=== PATIENT | male | born 1955 | race Caucasian/White ===

== ENCOUNTER 2023-05-16 18:12 | Inpatient (IN) | payer OTHER, MEDICAID ==
[~2023-05-16] VITALS: Ht 177.8 cm; Wt 108.9 kg
[2023-05-16 18:15] VITALS: BP 164/90; PULSE 94; RESP 20; TEMP 98.4; O2SAT 95
[2023-05-16 19:08] VITALS: PULSE 107; RESP 25; O2SAT 93
[2023-05-16] MEDS: ALBUTEROL SULFATE/IPRATROPIU 3 ML SOL IH ONE ×2 (19:08→20:37)
[2023-05-16 19:11] VITALS: PULSE 107; RESP 28; O2SAT 95
[2023-05-16 19:33] VITALS: O2SAT 95
[2023-05-16] MEDS ORDERED: PIPERACILLIN/TAZOBACTAM 3.375 GM VIAL IV ONE (19:50)
[2023-05-16] MEDS: methylPREDNISolone SS 125 MG/2 ML VIAL IVP ONE (20:21)
[2023-05-16] MEDS: PIPERACILLIN/TAZOBACTAM 3.375 GM in DEXT 5% MINI-BAG PLUS 50 ML IV ONE (20:24)
[2023-05-16 20:37] VITALS: PULSE 94; RESP 20; O2SAT 99
[2023-05-16 20:38] LABS: INR 1.06 (0.8-1.2); PARTIAL THROMBOPLASTIN TIME 35.4 secs (22-35.6); PROTHROMBIN TIME 11.1 secs (10.8-13.4)
[2023-05-16 20:40] LABS: ANION GAP 12.2 (8-16); CALCIUM 9.9 mg/dL (8.5-10.1); CARBON DIOXIDE 27.9 mmol/L (21-32); CREATININE 0.6 mg/dL (0.6-1.3); POTASSIUM 4.1 mmol/L (3.5-5.1)
[2023-05-16 20:47] VITALS: O2SAT 95
[2023-05-16 20:48] LABS: ALANINE AMINOTRANSFERASE 14 U/L (12-78); ALBUMIN 3.3 g/dL (3.4-5.0); ALKALINE PHOSPHATASE 67 U/L (50-136); ASPARTATE AMINOTRANSFERASE 16 U/L (15-37); BILIRUBIN,DIRECT 0.3 mg/dL (0.0-0.3); TOTAL BILIRUBIN 1.1 mg/dL (0.0-1.0)
[2023-05-16 20:50] LABS: LACTIC ACID 1.3 mmol/L (0.4-2.0)
[2023-05-16] MEDS: LORazepam 2 MG/ML VIAL IVP ONE (20:53)
[2023-05-16 21:59] LABS: BASOPHILS # (AUTO) 0.1 K/uL (0.00-0.22); BASOPHILS % (AUTO) 0.6 % (0.0-2.0); EOSINOPHILS # (AUTO) 0.2 K/uL (0-0.4); EOSINOPHILS % (AUTO) 1.8 % (0.0-4.0); HEMATOCRIT 39.5 % (36-52); HEMOGLOBIN 13.5 g/dL (12.0-18.0); MEAN CORPUSCULAR HEMOGLOBIN 30 pg (27-31); MEAN CORPUSCULAR HGB CONC 34 g/dL (33-37); MEAN CORPUSCULAR VOLUME 87.6 fL (80-94); MONOCYTES # (AUTO) 0.7 K/uL (0.8-1.0); MONOCYTES % (AUTO) 6.3 % (1.7-9.3); NEUTROPHILS # (AUTO) 8.9 K/uL (1.8-7.7); NEUTROPHILS % (AUTO) 82.3 % (42.2-75.2); PLATELET COUNT (AUTO) 289 K/uL (140-450); RED BLOOD CELL COUNT(AUTO) 4.52 MIL/uL (4.20-6.10); RED CELL DISTRIBUTION WIDTH 17.6 % (11.6-13.7); WHITE BLOOD COUNT (AUTO) 10.8 K/uL (4.8-10.8)
[2023-05-16 22:03] LABS: BLOOD GAS BASE EXCESS 0.1 mmol/L (-2.0-2.0); BLOOD GAS HCO3 23.9 mmol/L (22-26); BLOOD GAS O2 SAT% 93.8 % (92.0-98.5); BLOOD GAS PCO2 36.3 mmHg (35-45)
[2023-05-16] MEDS ORDERED: HYDROcodone/APAP 5/325 MG 1 TAB TAB PO PRN (22:20)
[2023-05-17] VITALS (23 sets, daily range): BP systolic 79–192; BP diastolic 41–133; PULSE 68–154; RESP 18–31; TEMP 98.8–98.9; O2SAT 66–100
[2023-05-17] MEDS ORDERED: PIPERACILLIN/TAZOBACTAM 3.375 GM VIAL IV ONE (05:06)
[2023-05-17] MEDS: PIPERACILLIN/TAZOBACTAM 3.375 GM in DEXTROSE 5% 50 ML IV SCH (05:30)
[2023-05-17] MEDS ORDERED: FAMO-90 GT (06:09)
[2023-05-17] MEDS ORDERED: GABA100C PO (06:09)
[2023-05-17] MEDS ORDERED: APIX5TAB GT (06:09)
[2023-05-17] MEDS ORDERED: ATOR40TA GT (06:09)
[2023-05-17] MEDS ORDERED: LISI40TA8 GT (06:09)
[2023-05-17] MEDS ORDERED: METO50TE2 PO (06:09)
[2023-05-17] MEDS ORDERED: DAPA10TA GT (06:09)
[2023-05-17 07:30] LABS: BASOPHILS % (AUTO) 0.1 % (0.0-2.0); HEMATOCRIT 41.6 % (36-52); LYMPHOCYTES # (AUTO) 1.5 K/uL (2.0-11.5); MEAN CORPUSCULAR HEMOGLOBIN 30 pg (27-31); MEAN CORPUSCULAR HGB CONC 34 g/dL (33-37); MEAN CORPUSCULAR VOLUME 88.6 fL (80-94); MONOCYTES # (AUTO) 0.3 K/uL (0.8-1.0); MONOCYTES % (AUTO) 1.9 % (1.7-9.3); NEUTROPHILS # (AUTO) 13.4 K/uL (1.8-7.7); PLATELET COUNT (AUTO) 399 K/uL (140-450); RED CELL DISTRIBUTION WIDTH 17.6 % (11.6-13.7); WHITE BLOOD COUNT (AUTO) 15.2 K/uL (4.8-10.8)
[2023-05-17] MEDS: KETAMINE HCL 50 mg/5 mL UD SYRINGE IV ONE ×2 (07:36→09:53)
[2023-05-17] MEDS: PROPOFOL 1000 MG/100 ML PREMIX 100 ML IV ONE (08:01)
[2023-05-17] MEDS: ACETYLCYSTEINE 20% (200 MG/ML) 200 MG/ML VIAL ONE (08:09)
[2023-05-17 08:16] LABS: ALBUMIN 3.6 g/dL (3.4-5.0); ANION GAP 13.5 (8-16); CALCIUM 10.5 mg/dL (8.5-10.1); CARBON DIOXIDE 29.1 mmol/L (21-32); CREATININE 0.8 mg/dL (0.6-1.3); MAGNESIUM 2.3 mg/dL (1.8-2.4); PHOSPHORUS 5.1 mg/dL (2.5-4.9); POTASSIUM 4.6 mmol/L (3.5-5.1); TOTAL BILIRUBIN 0.7 mg/dL (0.0-1.0); TOTAL PROTEIN, SERUM 8.7 g/dL (6.4-8.2)
[2023-05-17] MEDS ORDERED: VANCOMYCIN PER PHARMACY MC PRN ×2 (09:25→17:35)
[2023-05-17] MEDS: NOREPINEPHRINE 4 MG in DEXTROSE 5% 250 ML IV PRN (09:50)
[2023-05-17] MEDS: PROPOFOL 1000 MG/100 ML PREMIX 100 ML IV PRN (09:51)
[2023-05-17] MEDS: NACL 0.9% 1,000 ML IV SCH ×2 (09:57→09:58)
[2023-05-17] MEDS: AMIODARONE 150 MG in DEXTROSE 5% 100 ML IV SCH (10:01)
[2023-05-17] MEDS: AMIODARONE 450 MG in DEXTROSE 5% 250 ML IV SCH (10:18)
[2023-05-17] MEDS: VANCOMYCIN 1.25GM PREMIX 250 ML IV SCH (12:16)
[2023-05-17 13:15] LABS: BLOOD GAS BASE EXCESS -0.8 mmol/L (-2.0-2.0); BLOOD GAS HCO3 22.3 mmol/L (22-26); BLOOD GAS PCO2 32.2 mmHg (35-45); BLOOD GAS PH 7.458 (7.35-7.45); BLOOD GAS PO2 259.3 mmHg (75-100)
[2023-05-17 13:16] LABS: BLOOD GAS O2 SAT% 99.6 % (92.0-98.5)
[2023-05-17] MEDS ORDERED: DEXTROSE 50% 50 ML SYR IVP PRN (15:15)
[2023-05-17] MEDS: LEVALBUTEROL 1.25 MG/0.5 ML NEBU INH SCH (15:24)
[2023-05-17] MEDS: ENOXAPARIN 80 MG/0.8 ML SYR SUBQ SCH (16:25)
[2023-05-17] MEDS: BLOOD GLUCOSE MONITORING 1 DEV DEV FS SCH (16:34)
[2023-05-17] MEDS: INSULIN LISPRO SLIDING SCALE 100 UNITS/ML VIAL SUBQ PRN (16:36)
[2023-05-17] MEDS ORDERED: LOVENOX 1MG/KG Q12H SUBQ SCH (21:00)
[2023-05-17] MEDS: FAMOTIDINE 20 MG TAB GT SCH (21:37)
[2023-05-17] MEDS: ATORVASTATIN 20 MG TAB GT SCH (21:39)
[2023-05-18] VITALS (31 sets, daily range): BP systolic 92–156; BP diastolic 50–82; PULSE 68–133; RESP 18–29; TEMP 97.8–98.8; O2SAT 95–100
[2023-05-18 04:45] LABS: BASOPHILS # (AUTO) 0.1 K/uL (0.00-0.22); BASOPHILS % (AUTO) 0.7 % (0.0-2.0); EOSINOPHILS # (AUTO) 0.1 K/uL (0-0.4); EOSINOPHILS % (AUTO) 0.5 % (0.0-4.0); HEMATOCRIT 28.3 % (36-52); HEMOGLOBIN 9.9 g/dL (12.0-18.0); LYMPHOCYTES # (AUTO) 1.4 K/uL (2.0-11.5); LYMPHOCYTES % (AUTO) 12.2 % (20.5-51.1); MEAN CORPUSCULAR HEMOGLOBIN 31 pg (27-31); MEAN CORPUSCULAR HGB CONC 35 g/dL (33-37); MEAN CORPUSCULAR VOLUME 88.5 fL (80-94); MONOCYTES # (AUTO) 0.8 K/uL (0.8-1.0); NEUTROPHILS % (AUTO) 79.6 % (42.2-75.2); PLATELET COUNT (AUTO) 243 K/uL (140-450); RED CELL DISTRIBUTION WIDTH 18.1 % (11.6-13.7); WHITE BLOOD COUNT (AUTO) 11.3 K/uL (4.8-10.8)
[2023-05-18 05:37] LABS: ALBUMIN 2.5 g/dL (3.4-5.0); ANION GAP 7.6 (8-16); CALCIUM 8.5 mg/dL (8.5-10.1); CARBON DIOXIDE 27.4 mmol/L (21-32); CREATININE 0.9 mg/dL (0.6-1.3); MAGNESIUM 1.8 mg/dL (1.8-2.4); PHOSPHORUS 2.6 mg/dL (2.5-4.9); TOTAL BILIRUBIN 0.5 mg/dL (0.0-1.0); TOTAL PROTEIN, SERUM 5.9 g/dL (6.4-8.2)
[2023-05-18] MEDS: AMIODARONE 200 MG TAB PO SCH (09:17)
[2023-05-18] MEDS: VANCOMYCIN 1.25GM PREMIX 250 ML IV SCH (10:10)
[2023-05-18] MEDS: ACETYLCYSTEINE 20% (200 MG/ML) 200 MG/ML VIAL INH SCH (14:20)
[2023-05-18] MEDS: MORPHINE SULFATE 2 MG/ML SYR IVP PRN (15:46)
[2023-05-19] VITALS (31 sets, daily range): BP systolic 100–248; BP diastolic 56–113; PULSE 76–154; RESP 21–41; TEMP 98.2–102.4; O2SAT 92–100
[2023-05-19] MEDS: LORazepam 2 MG/ML VIAL IVP PRN (00:36)
[2023-05-19] MEDS: MIDAZOLAM MDV 50 MG/10 ML VIAL IV ONE (01:56)
[2023-05-19] MEDS: ACETAMINOPHEN 325 MG TAB PO PRN (04:14)
[2023-05-19 05:34] LABS: BASOPHILS % (AUTO) 0.1 % (0.0-2.0); EOSINOPHILS # (AUTO) 0.1 K/uL (0-0.4); EOSINOPHILS % (AUTO) 0.8 % (0.0-4.0); HEMATOCRIT 31.4 % (36-52); HEMOGLOBIN 11.3 g/dL (12.0-18.0); LYMPHOCYTES # (AUTO) 0.2 K/uL (2.0-11.5); LYMPHOCYTES % (AUTO) 1.6 % (20.5-51.1); MEAN CORPUSCULAR HEMOGLOBIN 32 pg (27-31); MEAN CORPUSCULAR HGB CONC 36 g/dL (33-37); MEAN CORPUSCULAR VOLUME 87.8 fL (80-94); MONOCYTES # (AUTO) 0.6 K/uL (0.8-1.0); MONOCYTES % (AUTO) 5.8 % (1.7-9.3); NEUTROPHILS # (AUTO) 9.9 K/uL (1.8-7.7); NEUTROPHILS % (AUTO) 91.7 % (42.2-75.2); PLATELET COUNT (AUTO) 240 K/uL (140-450); RED BLOOD CELL COUNT(AUTO) 3.57 MIL/uL (4.20-6.10); RED CELL DISTRIBUTION WIDTH 17.4 % (11.6-13.7); WHITE BLOOD COUNT (AUTO) 10.8 K/uL (4.8-10.8)
[2023-05-19 06:04] LABS: ALBUMIN 2.7 g/dL (3.4-5.0); CARBON DIOXIDE 24.1 mmol/L (21-32); CREATININE 0.9 mg/dL (0.6-1.3); MAGNESIUM 1.7 mg/dL (1.8-2.4); PHOSPHORUS 2.2 mg/dL (2.5-4.9); POTASSIUM 3.1 mmol/L (3.5-5.1); TOTAL BILIRUBIN 0.7 mg/dL (0.0-1.0); TOTAL PROTEIN, SERUM 6.6 g/dL (6.4-8.2)
[2023-05-19] MEDS: POTASSIUM CHLORIDE 20% 40 MEQ/15 ML UDC GT SCH (08:42)
[2023-05-19] MEDS: MIDAZOLAM MDV 50 MG in NACL 0.9% 40 ML IV PRN (12:40)
[2023-05-19] MEDS: fentaNYL citrate 1 MG in NACL 0.9% 80 ML IV PRN (18:30)
[2023-05-20] VITALS (32 sets, daily range): BP systolic 96–145; BP diastolic 48–69; PULSE 65–101; RESP 18–24; TEMP 97.2–99.2; O2SAT 96–100
[2023-05-20 06:59] LABS: ALBUMIN 2.1 g/dL (3.4-5.0); CARBON DIOXIDE 24.1 mmol/L (21-32); CREATININE 0.7 mg/dL (0.6-1.3); MAGNESIUM 1.6 mg/dL (1.8-2.4); PHOSPHORUS 2.7 mg/dL (2.5-4.9); POTASSIUM 3.1 mmol/L (3.5-5.1); TOTAL BILIRUBIN 0.7 mg/dL (0.0-1.0); TOTAL PROTEIN, SERUM 5.6 g/dL (6.4-8.2)
[2023-05-20 07:28] LABS: HEMATOCRIT 27.8 % (36-52); HEMOGLOBIN 9.7 g/dL (12.0-18.0); MEAN CORPUSCULAR HEMOGLOBIN 31 pg (27-31); MEAN CORPUSCULAR HGB CONC 35 g/dL (33-37); MEAN CORPUSCULAR VOLUME 87.7 fL (80-94); PLATELET COUNT (AUTO) 183 K/uL (140-450); RED BLOOD CELL COUNT(AUTO) 3.17 MIL/uL (4.20-6.10); RED CELL DISTRIBUTION WIDTH 17.3 % (11.6-13.7); WHITE BLOOD COUNT (AUTO) 6.2 K/uL (4.8-10.8)
[2023-05-20 07:58] LABS: BASOPHILS % (MANUAL) 0 % (0-2); BLASTS, MANUAL % 0 % (0-0); EOSINOPHILS % (MANUAL) 0 % (0-4); LYMPHOCYTES % (MANUAL) 6 % (20-46); METAMYELOCYTES % 0 % (0-0); MONOCYTES % (MANUAL) 2 % (5-12); MYELOCYTES % 0 % (0-0); OTHER CELLS,MANUAL % 0 (0-0); PLATELET ESTIMATE ADEQUATE; PROMYELOCYTES % 0 % (0-0)
[2023-05-20] MEDS: MAG SULF 2000 MG/WATER PREMIX 50 ML IV PRN (09:09)
[2023-05-20] MEDS: POTASSIUM CHLORIDE 10 MEQ TABER PO PRN (09:12)
[2023-05-21] VITALS (36 sets, daily range): BP systolic 97–215; BP diastolic 63–96; PULSE 65–108; RESP 18–28; TEMP 98.1–103.5; O2SAT 94–100
[2023-05-21 05:38] LABS: BASOPHILS % (AUTO) 0.3 % (0.0-2.0); EOSINOPHILS # (AUTO) 0.1 K/uL (0-0.4); EOSINOPHILS % (AUTO) 1.4 % (0.0-4.0); HEMATOCRIT 28.2 % (36-52); HEMOGLOBIN 9.9 g/dL (12.0-18.0); LYMPHOCYTES # (AUTO) 0.5 K/uL (2.0-11.5); LYMPHOCYTES % (AUTO) 8.1 % (20.5-51.1); MEAN CORPUSCULAR HEMOGLOBIN 30 pg (27-31); MEAN CORPUSCULAR HGB CONC 35 g/dL (33-37); MEAN CORPUSCULAR VOLUME 86.2 fL (80-94); MONOCYTES # (AUTO) 0.3 K/uL (0.8-1.0); NEUTROPHILS # (AUTO) 5.2 K/uL (1.8-7.7); NEUTROPHILS % (AUTO) 85.2 % (42.2-75.2); PLATELET COUNT (AUTO) 152 K/uL (140-450); RED BLOOD CELL COUNT(AUTO) 3.27 MIL/uL (4.20-6.10)
[2023-05-21 05:52] LABS: ANION GAP 10.2 (8-16); CARBON DIOXIDE 25.1 mmol/L (21-32); CREATININE 0.6 mg/dL (0.6-1.3); MAGNESIUM 1.8 mg/dL (1.8-2.4); POTASSIUM 3.3 mmol/L (3.5-5.1); TOTAL BILIRUBIN 0.7 mg/dL (0.0-1.0); TOTAL PROTEIN, SERUM 5.9 g/dL (6.4-8.2)
[2023-05-21] MEDS: VANCOMYCIN 1.25GM PREMIX 250 ML IV SCH (10:16)
[2023-05-21] MEDS ORDERED: ALBUTEROL SULFATE/IPRATROPIU 3 ML SOL IH PRN (11:55)
[2023-05-21] MEDS ORDERED: PIPERACILLIN/TAZOBACTAM 4.5 GM in DEXTROSE 5% 50 ML IV SCH (12:00)
[2023-05-21] MEDS: PIPERACILLIN/TAZOBACTAM 4.5 GM in DEXTROSE 5% 100 ML IV SCH (12:03)
[2023-05-21] MEDS: ALBUTEROL SULFATE/IPRATROPIU 3 ML SOL IH SCH (13:31)
[2023-05-21] MEDS: hydrALAZINE 20 MG/ML VIAL IVP PRN (14:05)
[2023-05-21 18:19] LABS: BILIRUBIN,URINE NEGATIVE (NEGATIVE); BLOOD, URINE 2+ (NEGATIVE); COLOR,URINE YELLOW (YELLOW); LEUKOCYTE ESTERASE ,URINE TRACE (NEGATIVE); NITRITE, URINE NEGATIVE (NEGATIVE); PROTEIN,URINE 2+ (NEGATIVE); UGLUCOSE 3+ (NEGATIVE); UROBILINOGEN,URINE 0.2 EU/dL (0.2 - 1)
[2023-05-21 18:20] LABS: APPEARANCE,URINE SLIGHTLY CLOUDY (CLEAR)
[2023-05-21 18:22] LABS: BACTERIA,URINE 2+ /HPF (None Seen); MUCUS,URINE 1+ /LPF (None Seen); SQUAMOUS EPITHELIAL CELL,UR 4-10 (MOD) /LPF (0-3 (FEW)); WBC,URINE 0-5 /HPF (0-5)
[2023-05-21 18:23] LABS: YEAST,URINE Moderate /HPF (None Seen)
[2023-05-21] MEDS: FLUCONAZOLE 200 MG/NS PREMIX 100 ML IV SCH (18:59)
[2023-05-22] VITALS (38 sets, daily range): BP systolic 111–218; BP diastolic 55–99; PULSE 73–100; RESP 20–30; TEMP 99.1–100.5; O2SAT 95–100
[2023-05-22 05:33] LABS: ALBUMIN 1.9 g/dL (3.4-5.0); ANION GAP 10.5 (8-16); CALCIUM 7.8 mg/dL (8.5-10.1); CARBON DIOXIDE 24.5 mmol/L (21-32); CREATININE 0.6 mg/dL (0.6-1.3); MAGNESIUM 1.7 mg/dL (1.8-2.4); PHOSPHORUS 1.7 mg/dL (2.5-4.9); TOTAL PROTEIN, SERUM 5.6 g/dL (6.4-8.2)
[2023-05-22 05:34] LABS: BASOPHILS % (AUTO) 0.3 % (0.0-2.0); EOSINOPHILS % (AUTO) 0.4 % (0.0-4.0); HEMATOCRIT 26.3 % (36-52); HEMOGLOBIN 9.1 g/dL (12.0-18.0); LYMPHOCYTES # (AUTO) 0.6 K/uL (2.0-11.5); LYMPHOCYTES % (AUTO) 10.6 % (20.5-51.1); MEAN CORPUSCULAR HEMOGLOBIN 30 pg (27-31); MEAN CORPUSCULAR HGB CONC 35 g/dL (33-37); MEAN CORPUSCULAR VOLUME 86.3 fL (80-94); MONOCYTES # (AUTO) 0.5 K/uL (0.8-1.0); MONOCYTES % (AUTO) 7.9 % (1.7-9.3); NEUTROPHILS # (AUTO) 4.8 K/uL (1.8-7.7); NEUTROPHILS % (AUTO) 80.8 % (42.2-75.2); PLATELET COUNT (AUTO) 138 K/uL (140-450); RED BLOOD CELL COUNT(AUTO) 3.05 MIL/uL (4.20-6.10); RED CELL DISTRIBUTION WIDTH 17.2 % (11.6-13.7); WHITE BLOOD COUNT (AUTO) 5.9 K/uL (4.8-10.8)
[2023-05-22 09:42] LABS: BLOOD GAS BASE EXCESS -0.5 mmol/L (-2.0-2.0); BLOOD GAS HCO3 22.7 mmol/L (22-26); BLOOD GAS PCO2 31.8 mmHg (35-45); BLOOD GAS PH 7.471 (7.35-7.45); BLOOD GAS PO2 90.3 mmHg (75-100)
[2023-05-22 09:43] LABS: BLOOD GAS O2 SAT% 97.5 % (92.0-98.5)
[2023-05-22] MEDS: ENOXAPARIN 100 MG/ML SYR SUBQ SCH (20:41)
[2023-05-23] VITALS (36 sets, daily range): BP systolic 102–183; BP diastolic 53–87; PULSE 60–94; RESP 16–32; TEMP 98.7–100.1; O2SAT 84–100
[2023-05-23 06:07] LABS: ALBUMIN 1.8 g/dL (3.4-5.0); ANION GAP 10.1 (8-16); CALCIUM 7.9 mg/dL (8.5-10.1); CARBON DIOXIDE 24.7 mmol/L (21-32); CREATININE 0.5 mg/dL (0.6-1.3); MAGNESIUM 1.9 mg/dL (1.8-2.4); PHOSPHORUS 1.5 mg/dL (2.5-4.9); TOTAL BILIRUBIN 0.6 mg/dL (0.0-1.0); TOTAL PROTEIN, SERUM 5.3 g/dL (6.4-8.2)
[2023-05-23 06:27] LABS: POTASSIUM 2.8 mmol/L (3.5-5.1)
[2023-05-23] MEDS: DEXMEDETOMIDINE HCL 400 MCG in NACL 0.9% 96 ML IV PRN (11:12)
[2023-05-23 12:31] LABS: BASOPHILS % (AUTO) 0.4 % (0.0-2.0); EOSINOPHILS # (AUTO) 0.1 K/uL (0-0.4); EOSINOPHILS % (AUTO) 2.1 % (0.0-4.0); LYMPHOCYTES % (AUTO) 16.5 % (20.5-51.1); MEAN CORPUSCULAR HEMOGLOBIN 30 pg (27-31); MEAN CORPUSCULAR HGB CONC 35 g/dL (33-37); MONOCYTES # (AUTO) 0.6 K/uL (0.8-1.0); MONOCYTES % (AUTO) 9.3 % (1.7-9.3); NEUTROPHILS # (AUTO) 4.4 K/uL (1.8-7.7); NEUTROPHILS % (AUTO) 71.7 % (42.2-75.2); PLATELET COUNT (AUTO) 156 K/uL (140-450); RED BLOOD CELL COUNT(AUTO) 3.02 MIL/uL (4.20-6.10); RED CELL DISTRIBUTION WIDTH 17.9 % (11.6-13.7); WHITE BLOOD COUNT (AUTO) 6.1 K/uL (4.8-10.8)
[2023-05-24] VITALS (31 sets, daily range): BP systolic 101–177; BP diastolic 58–88; PULSE 60–88; RESP 16–31; TEMP 98.6–99.8; O2SAT 95–100
[2023-05-24 05:17] LABS: BASOPHILS % (AUTO) 0.4 % (0.0-2.0); EOSINOPHILS # (AUTO) 0.1 K/uL (0-0.4); EOSINOPHILS % (AUTO) 1.5 % (0.0-4.0); HEMATOCRIT 24.4 % (36-52); HEMOGLOBIN 8.3 g/dL (12.0-18.0); LYMPHOCYTES # (AUTO) 1.1 K/uL (2.0-11.5); LYMPHOCYTES % (AUTO) 17.1 % (20.5-51.1); MEAN CORPUSCULAR HEMOGLOBIN 29 pg (27-31); MEAN CORPUSCULAR HGB CONC 34 g/dL (33-37); MEAN CORPUSCULAR VOLUME 86.2 fL (80-94); MONOCYTES # (AUTO) 0.5 K/uL (0.8-1.0); NEUTROPHILS # (AUTO) 4.8 K/uL (1.8-7.7); PLATELET COUNT (AUTO) 174 K/uL (140-450); RED BLOOD CELL COUNT(AUTO) 2.83 MIL/uL (4.20-6.10); RED CELL DISTRIBUTION WIDTH 17.4 % (11.6-13.7); WHITE BLOOD COUNT (AUTO) 6.4 K/uL (4.8-10.8)
[2023-05-24 06:07] LABS: ALBUMIN 1.8 g/dL (3.4-5.0); ANION GAP 10.6 (8-16); CALCIUM 8.3 mg/dL (8.5-10.1); CARBON DIOXIDE 24.6 mmol/L (21-32); CREATININE 0.6 mg/dL (0.6-1.3); MAGNESIUM 1.8 mg/dL (1.8-2.4); PHOSPHORUS 1.4 mg/dL (2.5-4.9); POTASSIUM 3.2 mmol/L (3.5-5.1); TOTAL BILIRUBIN 0.5 mg/dL (0.0-1.0); TOTAL PROTEIN, SERUM 5.5 g/dL (6.4-8.2)
[2023-05-24] MEDS: POLYETHYLENE GLYCOL 17 GM/PKT PO PRN (10:52)
[2023-05-24] MEDS: POTASSIUM CHLORIDE 20% 40 MEQ/15 ML UDC GT PRN (10:56)
[2023-05-24] MEDS: POTASSIUM PHOSPHATE 30 MM in NACL 0.9% 500 ML IV SCH (12:38)
[2023-05-24] MEDS: NOREPINEPHRINE 4 MG/4 ML VIAL IV ONE (14:13)
[2023-05-24] MEDS: HYDROcodone/APAP 5/325 MG 1 TAB TAB PO PRN (23:53)
[2023-05-25] VITALS (33 sets, daily range): BP systolic 116–199; BP diastolic 66–103; PULSE 49–100; RESP 14–28; TEMP 97.8–99.2; O2SAT 92–100
[2023-05-25 05:11] LABS: BASOPHILS % (AUTO) 0.4 % (0.0-2.0); EOSINOPHILS # (AUTO) 0.1 K/uL (0-0.4); EOSINOPHILS % (AUTO) 1.8 % (0.0-4.0); HEMATOCRIT 23.6 % (36-52); HEMOGLOBIN 8.1 g/dL (12.0-18.0); LYMPHOCYTES # (AUTO) 1.4 K/uL (2.0-11.5); LYMPHOCYTES % (AUTO) 22.7 % (20.5-51.1); MEAN CORPUSCULAR HEMOGLOBIN 30 pg (27-31); MEAN CORPUSCULAR HGB CONC 35 g/dL (33-37); MEAN CORPUSCULAR VOLUME 86.4 fL (80-94); MONOCYTES # (AUTO) 0.4 K/uL (0.8-1.0); MONOCYTES % (AUTO) 6.4 % (1.7-9.3); NEUTROPHILS # (AUTO) 4.1 K/uL (1.8-7.7); NEUTROPHILS % (AUTO) 68.7 % (42.2-75.2); PLATELET COUNT (AUTO) 218 K/uL (140-450); RED BLOOD CELL COUNT(AUTO) 2.73 MIL/uL (4.20-6.10); RED CELL DISTRIBUTION WIDTH 17.6 % (11.6-13.7)
[2023-05-25 05:24] LABS: ALBUMIN 1.9 g/dL (3.4-5.0); ANION GAP 10.5 (8-16); CALCIUM 8.5 mg/dL (8.5-10.1); CARBON DIOXIDE 25.1 mmol/L (21-32); CREATININE 0.5 mg/dL (0.6-1.3); MAGNESIUM 1.8 mg/dL (1.8-2.4); PHOSPHORUS 2.5 mg/dL (2.5-4.9); POTASSIUM 3.6 mmol/L (3.5-5.1); TOTAL BILIRUBIN 0.5 mg/dL (0.0-1.0); TOTAL PROTEIN, SERUM 5.6 g/dL (6.4-8.2)
[2023-05-25 10:03] LABS: BLOOD GAS BASE EXCESS -2.5 mmol/L (-2.0-2.0); BLOOD GAS HCO3 20.6 mmol/L (22-26); BLOOD GAS PCO2 29.1 mmHg (35-45); BLOOD GAS PH 7.467 (7.35-7.45); BLOOD GAS PO2 94.8 mmHg (75-100)
[2023-05-25 10:04] LABS: BLOOD GAS O2 SAT% 97.4 % (92.0-98.5)
[2023-05-25] MEDS: ALBUTEROL 0.083% 2.5 MG/3 ML NEBU INH ONE (11:06)
[2023-05-25] MEDS: ACETYLCYSTEINE 10% (100 MG/ML) 100 MG/ML VIAL INH SCH (11:16)
[2023-05-25] MEDS: ALBUTEROL 0.083% 2.5 MG/3 ML NEBU INH SCH (11:16)
[2023-05-25] MEDS: FUROSEMIDE 20 MG/2 ML VIAL IVP SCH (11:37)
[2023-05-25] MEDS: SCOPOLAMINE 1.5 MG/72 HR PATCH TD SCH (14:13)
[2023-05-25] MEDS: PIPERACILLIN/TAZOBACTAM 4.5 GM in DEXTROSE 5% 100 ML IV SCH (17:46)
[2023-05-25] MEDS: MELATONIN 3 MG TAB PO PRN (21:05)
[2023-05-26] VITALS (31 sets, daily range): BP systolic 143–193; BP diastolic 76–104; PULSE 73–111; RESP 16–31; TEMP 97.8–99.8; O2SAT 86–99
[2023-05-26 04:57] LABS: BASOPHILS % (AUTO) 0.6 % (0.0-2.0); EOSINOPHILS # (AUTO) 0.1 K/uL (0-0.4); EOSINOPHILS % (AUTO) 1.6 % (0.0-4.0); HEMATOCRIT 26.9 % (36-52); HEMOGLOBIN 9.1 g/dL (12.0-18.0); LYMPHOCYTES # (AUTO) 1.1 K/uL (2.0-11.5); LYMPHOCYTES % (AUTO) 13.4 % (20.5-51.1); MEAN CORPUSCULAR HEMOGLOBIN 29 pg (27-31); MEAN CORPUSCULAR HGB CONC 34 g/dL (33-37); MEAN CORPUSCULAR VOLUME 86.7 fL (80-94); MONOCYTES # (AUTO) 0.5 K/uL (0.8-1.0); MONOCYTES % (AUTO) 5.8 % (1.7-9.3); NEUTROPHILS # (AUTO) 6.5 K/uL (1.8-7.7); NEUTROPHILS % (AUTO) 78.6 % (42.2-75.2); PLATELET COUNT (AUTO) 314 K/uL (140-450); RED BLOOD CELL COUNT(AUTO) 3.11 MIL/uL (4.20-6.10); RED CELL DISTRIBUTION WIDTH 17.1 % (11.6-13.7); WHITE BLOOD COUNT (AUTO) 8.3 K/uL (4.8-10.8)
[2023-05-26 05:13] LABS: ALBUMIN 2.2 g/dL (3.4-5.0); ANION GAP 10.7 (8-16); CALCIUM 8.6 mg/dL (8.5-10.1); CARBON DIOXIDE 26.5 mmol/L (21-32); CREATININE 0.6 mg/dL (0.6-1.3); MAGNESIUM 1.7 mg/dL (1.8-2.4); PHOSPHORUS 2.5 mg/dL (2.5-4.9); POTASSIUM 3.2 mmol/L (3.5-5.1); TOTAL BILIRUBIN 0.5 mg/dL (0.0-1.0); TOTAL PROTEIN, SERUM 6.1 g/dL (6.4-8.2)
[2023-05-26] MEDS: FUROSEMIDE 40 MG/4 ML VIAL IVP SCH (10:10)
[2023-05-26 11:02] LABS: BLOOD GAS PCO2 32.1 mmHg (35-45); BLOOD GAS PH 7.509 (7.35-7.45)
[2023-05-26 11:06] LABS: BLOOD GAS BASE EXCESS 2.3 mmol/L (-2.0-2.0); BLOOD GAS O2 SAT% 92.9 % (92.0-98.5); BLOOD GAS PO2 59.7 mmHg (75-100)
[2023-05-26] MEDS: LOSARTAN 50 MG TAB PO SCH (13:44)
[2023-05-26] MEDS: METOPROLOL 25 MG TAB PO SCH (20:16)
[2023-05-27] VITALS (30 sets, daily range): BP systolic 94–198; BP diastolic 57–112; PULSE 69–113; RESP 17–28; TEMP 98.1–98.9; O2SAT 92–100
[2023-05-27 06:21] LABS: BASOPHILS # (AUTO) 0.1 K/uL (0.00-0.22); EOSINOPHILS # (AUTO) 0.1 K/uL (0-0.4); EOSINOPHILS % (AUTO) 1.1 % (0.0-4.0); HEMATOCRIT 28.6 % (36-52); HEMOGLOBIN 9.9 g/dL (12.0-18.0); LYMPHOCYTES # (AUTO) 1.3 K/uL (2.0-11.5); MEAN CORPUSCULAR HEMOGLOBIN 30 pg (27-31); MEAN CORPUSCULAR HGB CONC 35 g/dL (33-37); MEAN CORPUSCULAR VOLUME 86.4 fL (80-94); MONOCYTES # (AUTO) 0.6 K/uL (0.8-1.0); MONOCYTES % (AUTO) 5.8 % (1.7-9.3); NEUTROPHILS # (AUTO) 7.9 K/uL (1.8-7.7); NEUTROPHILS % (AUTO) 79.1 % (42.2-75.2); PLATELET COUNT (AUTO) 413 K/uL (140-450); RED BLOOD CELL COUNT(AUTO) 3.31 MIL/uL (4.20-6.10); RED CELL DISTRIBUTION WIDTH 17.8 % (11.6-13.7)
[2023-05-27 06:35] LABS: ALBUMIN 2.3 g/dL (3.4-5.0); ANION GAP 7.7 (8-16); CALCIUM 8.4 mg/dL (8.5-10.1); CARBON DIOXIDE 30.4 mmol/L (21-32); CREATININE 0.6 mg/dL (0.6-1.3); PHOSPHORUS 2.2 mg/dL (2.5-4.9); POTASSIUM 3.1 mmol/L (3.5-5.1); TOTAL BILIRUBIN 0.5 mg/dL (0.0-1.0); TOTAL PROTEIN, SERUM 6.4 g/dL (6.4-8.2)
[2023-05-27] MEDS: ETOMIDATE 20 MG/10 ML VIAL IVP ONE (10:14)
[2023-05-27] MEDS: ROCURONIUM 50 MG/5 ML VIAL IV ONE (10:18)
[2023-05-27] MEDS: ACETYLCYSTEINE 20% (200 MG/ML) 200 MG/ML VIAL ONE (10:35)
[2023-05-27] MEDS: MIDAZOLAM MDV 50 MG/10 ML VIAL IV ONE (10:39)
[2023-05-27] MEDS ORDERED: fentaNYL citrate 1 MG in NACL 0.9% 80 ML IV PRN (10:40)
[2023-05-27] MEDS: fentaNYL citrate 0.05 MG/ML VIAL ONE (10:58)
[2023-05-27 12:15] LABS: BLOOD GAS HCO3 24.7 mmol/L (22-26); BLOOD GAS O2 SAT% 98.4 % (92.0-98.5); BLOOD GAS PCO2 40.6 mmHg (35-45); BLOOD GAS PH 7.402 (7.35-7.45)
[2023-05-27] MEDS ORDERED: COMMUNICATION ORDER MC PRN (13:35)
[2023-05-27] MEDS: MIDAZOLAM MDV 50 MG in NACL 0.9% 40 ML IV PRN (20:39)
[2023-05-28] VITALS (31 sets, daily range): BP systolic 90–118; BP diastolic 51–71; PULSE 65–82; RESP 19–28; TEMP 97.2–98.2; O2SAT 91–100
[2023-05-28 06:33] LABS: BASOPHILS # (AUTO) 0.1 K/uL (0.00-0.22); BASOPHILS % (AUTO) 0.7 % (0.0-2.0); EOSINOPHILS # (AUTO) 0.3 K/uL (0-0.4); EOSINOPHILS % (AUTO) 2.5 % (0.0-4.0); HEMATOCRIT 25.3 % (36-52); HEMOGLOBIN 8.8 g/dL (12.0-18.0); LYMPHOCYTES # (AUTO) 1.7 K/uL (2.0-11.5); LYMPHOCYTES % (AUTO) 15.1 % (20.5-51.1); MEAN CORPUSCULAR HEMOGLOBIN 30 pg (27-31); MEAN CORPUSCULAR HGB CONC 35 g/dL (33-37); MEAN CORPUSCULAR VOLUME 87.2 fL (80-94); MONOCYTES # (AUTO) 0.6 K/uL (0.8-1.0); MONOCYTES % (AUTO) 5.9 % (1.7-9.3); NEUTROPHILS # (AUTO) 8.3 K/uL (1.8-7.7); NEUTROPHILS % (AUTO) 75.8 % (42.2-75.2); PLATELET COUNT (AUTO) 379 K/uL (140-450); RED BLOOD CELL COUNT(AUTO) 2.91 MIL/uL (4.20-6.10); RED CELL DISTRIBUTION WIDTH 17.9 % (11.6-13.7); WHITE BLOOD COUNT (AUTO) 10.9 K/uL (4.8-10.8)
[2023-05-28 06:54] LABS: ANION GAP 8.4 (8-16); CALCIUM 8.1 mg/dL (8.5-10.1); CARBON DIOXIDE 30.8 mmol/L (21-32); CREATININE 0.6 mg/dL (0.6-1.3); POTASSIUM 3.2 mmol/L (3.5-5.1)
[2023-05-28] MEDS: fentaNYL citrate 1 MG in NACL 0.9% 80 ML IV PRN (14:55)
[2023-05-28] MEDS: METOPROLOL 25 MG TAB PO SCH (21:00)
[2023-05-29] VITALS (35 sets, daily range): BP systolic 90–155; BP diastolic 57–99; PULSE 57–81; RESP 20–25; TEMP 97.2–98.2; O2SAT 95–100
[2023-05-29 05:51] LABS: BASOPHILS # (AUTO) 0.1 K/uL (0.00-0.22); BASOPHILS % (AUTO) 0.7 % (0.0-2.0); EOSINOPHILS # (AUTO) 0.4 K/uL (0-0.4); EOSINOPHILS % (AUTO) 4.5 % (0.0-4.0); HEMATOCRIT 24.5 % (36-52); HEMOGLOBIN 8.5 g/dL (12.0-18.0); LYMPHOCYTES # (AUTO) 1.2 K/uL (2.0-11.5); LYMPHOCYTES % (AUTO) 15.3 % (20.5-51.1); MEAN CORPUSCULAR HEMOGLOBIN 30 pg (27-31); MEAN CORPUSCULAR HGB CONC 35 g/dL (33-37); MEAN CORPUSCULAR VOLUME 87.8 fL (80-94); MONOCYTES # (AUTO) 0.5 K/uL (0.8-1.0); MONOCYTES % (AUTO) 6.2 % (1.7-9.3); NEUTROPHILS # (AUTO) 5.8 K/uL (1.8-7.7); NEUTROPHILS % (AUTO) 73.3 % (42.2-75.2); PLATELET COUNT (AUTO) 407 K/uL (140-450); RED CELL DISTRIBUTION WIDTH 18.2 % (11.6-13.7)
[2023-05-29 06:21] LABS: ANION GAP 8.4 (8-16); CALCIUM 8.1 mg/dL (8.5-10.1); CARBON DIOXIDE 30.2 mmol/L (21-32); CREATININE 0.6 mg/dL (0.6-1.3); POTASSIUM 3.6 mmol/L (3.5-5.1)
[2023-05-29] MEDS: LOSARTAN 50 MG TAB PO SCH (08:50)
[2023-05-29] MEDS: SCOPOLAMINE 1.5 MG/72 HR PATCH TD SCH (12:43)
[2023-05-29] MEDS: DEXMEDETOMIDINE HCL 400 MCG in NACL 0.9% 96 ML IV PRN (12:46)
[2023-05-30] VITALS (35 sets, daily range): BP systolic 98–186; BP diastolic 54–97; PULSE 51–71; RESP 18–31; TEMP 97.8–98.8; O2SAT 94–100
[2023-05-30 05:53] LABS: BASOPHILS # (AUTO) 0.1 K/uL (0.00-0.22); BASOPHILS % (AUTO) 0.8 % (0.0-2.0); EOSINOPHILS # (AUTO) 0.4 K/uL (0-0.4); EOSINOPHILS % (AUTO) 4.7 % (0.0-4.0); HEMATOCRIT 25.4 % (36-52); HEMOGLOBIN 8.6 g/dL (12.0-18.0); LYMPHOCYTES # (AUTO) 1.3 K/uL (2.0-11.5); LYMPHOCYTES % (AUTO) 16.7 % (20.5-51.1); MEAN CORPUSCULAR HEMOGLOBIN 30 pg (27-31); MEAN CORPUSCULAR HGB CONC 34 g/dL (33-37); MONOCYTES # (AUTO) 0.5 K/uL (0.8-1.0); NEUTROPHILS # (AUTO) 5.5 K/uL (1.8-7.7); NEUTROPHILS % (AUTO) 71.8 % (42.2-75.2); PLATELET COUNT (AUTO) 405 K/uL (140-450); RED BLOOD CELL COUNT(AUTO) 2.88 MIL/uL (4.20-6.10); RED CELL DISTRIBUTION WIDTH 18.6 % (11.6-13.7); WHITE BLOOD COUNT (AUTO) 7.6 K/uL (4.8-10.8)
[2023-05-30 06:40] LABS: ANION GAP 10.7 (8-16); CALCIUM 8.5 mg/dL (8.5-10.1); CARBON DIOXIDE 28.1 mmol/L (21-32); CREATININE 0.6 mg/dL (0.6-1.3); POTASSIUM 3.8 mmol/L (3.5-5.1)
[2023-05-30] MEDS: ALBUTEROL 0.083% 2.5 MG/3 ML NEBU INH SCH (06:59)
[2023-05-30] MEDS: ACETYLCYSTEINE 10% (100 MG/ML) 100 MG/ML VIAL INH SCH (13:03)
[2023-05-30] MEDS: ACETYLCYSTEINE 20% (200 MG/ML) 200 MG/ML VIAL INH ONE (15:05)
[2023-05-30] MEDS: GLYCOPYRROLATE 0.2 MG/ML VIAL IV SCH (20:51)
[2023-05-30] MEDS: BLOOD GLUCOSE MONITORING 1 DEV DEV FS SCH (23:50)
[2023-05-31] VITALS (36 sets, daily range): BP systolic 122–162; BP diastolic 72–93; PULSE 54–71; RESP 20–31; TEMP 98.2–99.2; O2SAT 95–100
[2023-05-31 05:51] LABS: BASOPHILS # (AUTO) 0.1 K/uL (0.00-0.22); BASOPHILS % (AUTO) 0.6 % (0.0-2.0); EOSINOPHILS # (AUTO) 0.3 K/uL (0-0.4); EOSINOPHILS % (AUTO) 3.3 % (0.0-4.0); HEMATOCRIT 26.4 % (36-52); LYMPHOCYTES # (AUTO) 1.4 K/uL (2.0-11.5); LYMPHOCYTES % (AUTO) 16.1 % (20.5-51.1); MEAN CORPUSCULAR HEMOGLOBIN 30 pg (27-31); MEAN CORPUSCULAR HGB CONC 34 g/dL (33-37); MEAN CORPUSCULAR VOLUME 87.9 fL (80-94); MONOCYTES # (AUTO) 0.4 K/uL (0.8-1.0); MONOCYTES % (AUTO) 4.6 % (1.7-9.3); NEUTROPHILS # (AUTO) 6.4 K/uL (1.8-7.7); NEUTROPHILS % (AUTO) 75.4 % (42.2-75.2); PLATELET COUNT (AUTO) 403 K/uL (140-450); RED CELL DISTRIBUTION WIDTH 18.4 % (11.6-13.7); WHITE BLOOD COUNT (AUTO) 8.5 K/uL (4.8-10.8)
[2023-05-31 06:28] LABS: ALBUMIN 2.2 g/dL (3.4-5.0); ANION GAP 9.9 (8-16); CALCIUM 8.6 mg/dL (8.5-10.1); CREATININE 0.6 mg/dL (0.6-1.3); POTASSIUM 3.9 mmol/L (3.5-5.1); TOTAL BILIRUBIN 0.3 mg/dL (0.0-1.0); TOTAL PROTEIN, SERUM 6.3 g/dL (6.4-8.2)
[2023-05-31] MEDS ORDERED: FOAM DRESSING TP PRN (13:35)
[2023-06-01] VITALS (32 sets, daily range): BP systolic 111–161; BP diastolic 68–91; PULSE 56–85; RESP 18–28; TEMP 97.4–100; O2SAT 60–100
[2023-06-01] MEDS: HYDRAGUARD CREAM TP SCH (01:35)
[2023-06-01 05:07] LABS: BASOPHILS % (AUTO) 0.5 % (0.0-2.0); EOSINOPHILS # (AUTO) 0.1 K/uL (0-0.4); EOSINOPHILS % (AUTO) 1.6 % (0.0-4.0); HEMATOCRIT 28.4 % (36-52); HEMOGLOBIN 9.7 g/dL (12.0-18.0); LYMPHOCYTES # (AUTO) 1.1 K/uL (2.0-11.5); MEAN CORPUSCULAR HEMOGLOBIN 30 pg (27-31); MEAN CORPUSCULAR HGB CONC 34 g/dL (33-37); MEAN CORPUSCULAR VOLUME 87.5 fL (80-94); MONOCYTES # (AUTO) 0.3 K/uL (0.8-1.0); MONOCYTES % (AUTO) 4.6 % (1.7-9.3); NEUTROPHILS % (AUTO) 79.3 % (42.2-75.2); PLATELET COUNT (AUTO) 416 K/uL (140-450); RED BLOOD CELL COUNT(AUTO) 3.24 MIL/uL (4.20-6.10); RED CELL DISTRIBUTION WIDTH 18.3 % (11.6-13.7); WHITE BLOOD COUNT (AUTO) 7.5 K/uL (4.8-10.8)
[2023-06-01 05:49] LABS: ANION GAP 13.1 (8-16); CARBON DIOXIDE 25.5 mmol/L (21-32); CREATININE 0.6 mg/dL (0.6-1.3); POTASSIUM 3.6 mmol/L (3.5-5.1)
[2023-06-01] MEDS: ONDANSETRON 4 MG/2 ML VIAL IVP PRN (07:25)
[2023-06-01] MEDS: AMIODARONE 200 MG TAB PO SCH (09:21)
[2023-06-01] MEDS: DOCUSATE 100 MG/10 ML UDC GT SCH (10:35)
[2023-06-01] MEDS: Z-GUARD PASTE TP SCH (13:00)
[2023-06-01] MEDS: FOAM DRESSING TP SCH (13:00)
[2023-06-02] VITALS (34 sets, daily range): BP systolic 114–212; BP diastolic 55–88; PULSE 45–77; RESP 20–27; TEMP 98.2–100; O2SAT 91–100
[2023-06-02 06:16] LABS: BASOPHILS # (AUTO) 0.1 K/uL (0.00-0.22); BASOPHILS % (AUTO) 1.2 % (0.0-2.0); EOSINOPHILS # (AUTO) 0.1 K/uL (0-0.4); EOSINOPHILS % (AUTO) 0.9 % (0.0-4.0); HEMATOCRIT 27.5 % (36-52); HEMOGLOBIN 9.6 g/dL (12.0-18.0); LYMPHOCYTES # (AUTO) 0.9 K/uL (2.0-11.5); LYMPHOCYTES % (AUTO) 10.7 % (20.5-51.1); MEAN CORPUSCULAR HEMOGLOBIN 31 pg (27-31); MEAN CORPUSCULAR HGB CONC 35 g/dL (33-37); MEAN CORPUSCULAR VOLUME 88.3 fL (80-94); MONOCYTES # (AUTO) 0.4 K/uL (0.8-1.0); MONOCYTES % (AUTO) 4.3 % (1.7-9.3); NEUTROPHILS % (AUTO) 82.9 % (42.2-75.2); PLATELET COUNT (AUTO) 385 K/uL (140-450); RED BLOOD CELL COUNT(AUTO) 3.12 MIL/uL (4.20-6.10); RED CELL DISTRIBUTION WIDTH 18.4 % (11.6-13.7); WHITE BLOOD COUNT (AUTO) 8.5 K/uL (4.8-10.8)
[2023-06-02 06:37] LABS: ANION GAP 13.1 (8-16); CALCIUM 8.6 mg/dL (8.5-10.1); CARBON DIOXIDE 24.4 mmol/L (21-32); CREATININE 0.7 mg/dL (0.6-1.3); POTASSIUM 3.5 mmol/L (3.5-5.1)
[2023-06-03] VITALS (33 sets, daily range): BP systolic 129–198; BP diastolic 57–98; PULSE 48–92; RESP 2–28; TEMP 98.2–100; O2SAT 96–100
[2023-06-03 06:19] LABS: BASOPHILS % (AUTO) 0.4 % (0.0-2.0); EOSINOPHILS # (AUTO) 0.1 K/uL (0-0.4); EOSINOPHILS % (AUTO) 1.5 % (0.0-4.0); HEMATOCRIT 27.3 % (36-52); HEMOGLOBIN 9.4 g/dL (12.0-18.0); LYMPHOCYTES # (AUTO) 0.8 K/uL (2.0-11.5); LYMPHOCYTES % (AUTO) 12.1 % (20.5-51.1); MEAN CORPUSCULAR HEMOGLOBIN 31 pg (27-31); MEAN CORPUSCULAR HGB CONC 35 g/dL (33-37); MEAN CORPUSCULAR VOLUME 88.4 fL (80-94); MONOCYTES # (AUTO) 0.4 K/uL (0.8-1.0); MONOCYTES % (AUTO) 5.1 % (1.7-9.3); NEUTROPHILS # (AUTO) 5.7 K/uL (1.8-7.7); NEUTROPHILS % (AUTO) 80.9 % (42.2-75.2); PLATELET COUNT (AUTO) 355 K/uL (140-450); RED BLOOD CELL COUNT(AUTO) 3.09 MIL/uL (4.20-6.10); RED CELL DISTRIBUTION WIDTH 19.1 % (11.6-13.7)
[2023-06-03 07:04] LABS: ANION GAP 11.7 (8-16); CALCIUM 8.4 mg/dL (8.5-10.1); CARBON DIOXIDE 25.6 mmol/L (21-32); CREATININE 0.6 mg/dL (0.6-1.3); POTASSIUM 3.3 mmol/L (3.5-5.1)
[2023-06-03] MEDS: METOCLOPRAMIDE 10 MG/10 ML SYRP UDC GT SCH (11:54)
[2023-06-04] VITALS (30 sets, daily range): BP systolic 78–204; BP diastolic 40–111; PULSE 53–108; RESP 18–30; TEMP 97.7–99.5; O2SAT 93–100
[2023-06-04] MEDS: fentaNYL citrate 1 MG in NACL 0.9% 80 ML IV PRN (00:09)
[2023-06-04] MEDS: hydrALAZINE 20 MG/ML VIAL IVP ONE (02:59)
[2023-06-04 06:46] LABS: BASOPHILS # (AUTO) 0.1 K/uL (0.00-0.22); BASOPHILS % (AUTO) 0.5 % (0.0-2.0); EOSINOPHILS # (AUTO) 0.1 K/uL (0-0.4); EOSINOPHILS % (AUTO) 0.9 % (0.0-4.0); HEMATOCRIT 34.2 % (36-52); HEMOGLOBIN 11.4 g/dL (12.0-18.0); LYMPHOCYTES # (AUTO) 0.6 K/uL (2.0-11.5); LYMPHOCYTES % (AUTO) 4.9 % (20.5-51.1); MEAN CORPUSCULAR HEMOGLOBIN 30 pg (27-31); MEAN CORPUSCULAR HGB CONC 34 g/dL (33-37); MEAN CORPUSCULAR VOLUME 88.2 fL (80-94); MONOCYTES # (AUTO) 0.3 K/uL (0.8-1.0); MONOCYTES % (AUTO) 2.5 % (1.7-9.3); NEUTROPHILS # (AUTO) 11.1 K/uL (1.8-7.7); NEUTROPHILS % (AUTO) 91.2 % (42.2-75.2); PLATELET COUNT (AUTO) 443 K/uL (140-450); RED BLOOD CELL COUNT(AUTO) 3.88 MIL/uL (4.20-6.10); RED CELL DISTRIBUTION WIDTH 19.2 % (11.6-13.7); WHITE BLOOD COUNT (AUTO) 12.1 K/uL (4.8-10.8)
[2023-06-04 06:47] LABS: ANION GAP 12.3 (8-16); CALCIUM 9.2 mg/dL (8.5-10.1); CARBON DIOXIDE 26.1 mmol/L (21-32); CREATININE 0.6 mg/dL (0.6-1.3); POTASSIUM 3.4 mmol/L (3.5-5.1)
[2023-06-04] MEDS: fentaNYL citrate 0.05 MG/ML VIAL ONE (06:48)
[2023-06-05] VITALS (32 sets, daily range): BP systolic 97–161; BP diastolic 51–89; PULSE 49–92; RESP 20–28; TEMP 98.3–99.5; O2SAT 94–100
[2023-06-05 06:22] LABS: BASOPHILS % (AUTO) 0.4 % (0.0-2.0); EOSINOPHILS % (AUTO) 0.3 % (0.0-4.0); HEMATOCRIT 28.1 % (36-52); HEMOGLOBIN 9.6 g/dL (12.0-18.0); LYMPHOCYTES # (AUTO) 0.5 K/uL (2.0-11.5); LYMPHOCYTES % (AUTO) 4.3 % (20.5-51.1); MEAN CORPUSCULAR HEMOGLOBIN 30 pg (27-31); MEAN CORPUSCULAR HGB CONC 34 g/dL (33-37); MEAN CORPUSCULAR VOLUME 88.8 fL (80-94); MONOCYTES # (AUTO) 0.5 K/uL (0.8-1.0); MONOCYTES % (AUTO) 4.8 % (1.7-9.3); NEUTROPHILS # (AUTO) 9.7 K/uL (1.8-7.7); NEUTROPHILS % (AUTO) 90.2 % (42.2-75.2); PLATELET COUNT (AUTO) 323 K/uL (140-450); RED BLOOD CELL COUNT(AUTO) 3.16 MIL/uL (4.20-6.10); RED CELL DISTRIBUTION WIDTH 18.9 % (11.6-13.7); WHITE BLOOD COUNT (AUTO) 10.8 K/uL (4.8-10.8)
[2023-06-05 06:51] LABS: ANION GAP 11.4 (8-16); CARBON DIOXIDE 25.4 mmol/L (21-32); CREATININE 0.5 mg/dL (0.6-1.3); POTASSIUM 3.8 mmol/L (3.5-5.1)
[2023-06-05] MEDS ORDERED: SEVOFLURANE 250 ML BTL INH ONE (10:30)
[2023-06-05] MEDS: LIDOCAINE 1% 500 MG/50 ML VIAL ONE (10:57)
[2023-06-05] MEDS: ceFAZolin 1,000 MG VIAL ONE ×2 (10:57→11:04)
[2023-06-05] MEDS: GLYCOPYRROLATE 0.2 MG/ML VIAL ONE (11:05)
[2023-06-05] MEDS: fentaNYL citrate - 50mL vial 2.5 MG in NACL 0.9% 200 ML IV PRN (16:34)
[2023-06-06] VITALS (34 sets, daily range): BP systolic 120–157; BP diastolic 49–93; PULSE 44–75; RESP 18–25; TEMP 97.6–98.8; O2SAT 97–100
[2023-06-06 06:21] LABS: BASOPHILS # (AUTO) 0.1 K/uL (0.00-0.22); EOSINOPHILS # (AUTO) 0.1 K/uL (0-0.4); EOSINOPHILS % (AUTO) 1.7 % (0.0-4.0); HEMATOCRIT 27.4 % (36-52); HEMOGLOBIN 9.1 g/dL (12.0-18.0); LYMPHOCYTES # (AUTO) 0.8 K/uL (2.0-11.5); LYMPHOCYTES % (AUTO) 13.6 % (20.5-51.1); MEAN CORPUSCULAR HEMOGLOBIN 30 pg (27-31); MEAN CORPUSCULAR HGB CONC 33 g/dL (33-37); MEAN CORPUSCULAR VOLUME 89.1 fL (80-94); MONOCYTES # (AUTO) 0.3 K/uL (0.8-1.0); MONOCYTES % (AUTO) 4.8 % (1.7-9.3); NEUTROPHILS # (AUTO) 4.7 K/uL (1.8-7.7); NEUTROPHILS % (AUTO) 78.9 % (42.2-75.2); PLATELET COUNT (AUTO) 286 K/uL (140-450); RED BLOOD CELL COUNT(AUTO) 3.07 MIL/uL (4.20-6.10); RED CELL DISTRIBUTION WIDTH 18.8 % (11.6-13.7); WHITE BLOOD COUNT (AUTO) 5.9 K/uL (4.8-10.8)
[2023-06-06 06:51] LABS: ANION GAP 12.9 (8-16); CALCIUM 8.9 mg/dL (8.5-10.1); CARBON DIOXIDE 24.8 mmol/L (21-32); CREATININE 0.5 mg/dL (0.6-1.3); POTASSIUM 3.7 mmol/L (3.5-5.1)
[2023-06-06] MEDS ORDERED: CEFEPIME 2,000 MG in DEXTROSE 5% 100 ML IV SCH (22:00)
[2023-06-07] VITALS (37 sets, daily range): BP systolic 116–171; BP diastolic 59–107; PULSE 43–88; RESP 15–29; TEMP 96.9–98.8; O2SAT 93–100
[2023-06-07] MEDS ORDERED: CEFEPIME 2,000 MG VIAL IV ONE (04:33)
[2023-06-07] MEDS: CEFEPIME 2,000 MG in DEXTROSE 5% 100 ML IV SCH (04:39)
[2023-06-07 05:28] LABS: BASOPHILS # (AUTO) 0.1 K/uL (0.00-0.22); BASOPHILS % (AUTO) 1.1 % (0.0-2.0); EOSINOPHILS # (AUTO) 0.1 K/uL (0-0.4); EOSINOPHILS % (AUTO) 1.7 % (0.0-4.0); HEMATOCRIT 30.1 % (36-52); HEMOGLOBIN 10.1 g/dL (12.0-18.0); LYMPHOCYTES # (AUTO) 1.3 K/uL (2.0-11.5); LYMPHOCYTES % (AUTO) 28.1 % (20.5-51.1); MEAN CORPUSCULAR HEMOGLOBIN 30 pg (27-31); MEAN CORPUSCULAR HGB CONC 34 g/dL (33-37); MEAN CORPUSCULAR VOLUME 88.6 fL (80-94); MONOCYTES # (AUTO) 0.2 K/uL (0.8-1.0); NEUTROPHILS % (AUTO) 64.1 % (42.2-75.2); PLATELET COUNT (AUTO) 268 K/uL (140-450); RED CELL DISTRIBUTION WIDTH 18.3 % (11.6-13.7); WHITE BLOOD COUNT (AUTO) 4.7 K/uL (4.8-10.8)
[2023-06-07 05:49] LABS: ANION GAP 13.9 (8-16); CALCIUM 9.1 mg/dL (8.5-10.1); CARBON DIOXIDE 24.5 mmol/L (21-32); CREATININE 0.5 mg/dL (0.6-1.3); POTASSIUM 3.4 mmol/L (3.5-5.1)
[2023-06-08] VITALS (34 sets, daily range): BP systolic 115–183; BP diastolic 49–106; PULSE 23–71; RESP 15–34; TEMP 98–98.8; O2SAT 91–100
[2023-06-08 05:53] LABS: BASOPHILS # (AUTO) 0.1 K/uL (0.00-0.22); BASOPHILS % (AUTO) 2.6 % (0.0-2.0); EOSINOPHILS # (AUTO) 0.2 K/uL (0-0.4); EOSINOPHILS % (AUTO) 3.3 % (0.0-4.0); HEMATOCRIT 28.4 % (36-52); HEMOGLOBIN 9.7 g/dL (12.0-18.0); LYMPHOCYTES # (AUTO) 0.4 K/uL (2.0-11.5); LYMPHOCYTES % (AUTO) 7.7 % (20.5-51.1); MEAN CORPUSCULAR HEMOGLOBIN 30 pg (27-31); MEAN CORPUSCULAR HGB CONC 34 g/dL (33-37); MEAN CORPUSCULAR VOLUME 87.4 fL (80-94); MONOCYTES # (AUTO) 0.3 K/uL (0.8-1.0); MONOCYTES % (AUTO) 5.8 % (1.7-9.3); NEUTROPHILS # (AUTO) 4.3 K/uL (1.8-7.7); NEUTROPHILS % (AUTO) 80.6 % (42.2-75.2); PLATELET COUNT (AUTO) 285 K/uL (140-450); RED BLOOD CELL COUNT(AUTO) 3.25 MIL/uL (4.20-6.10); RED CELL DISTRIBUTION WIDTH 18.6 % (11.6-13.7); WHITE BLOOD COUNT (AUTO) 5.3 K/uL (4.8-10.8)
[2023-06-08 06:09] LABS: ANION GAP 12.7 (8-16); CALCIUM 8.8 mg/dL (8.5-10.1); CREATININE 0.6 mg/dL (0.6-1.3); POTASSIUM 3.7 mmol/L (3.5-5.1)
[2023-06-08] MEDS: QUEtiapine FUMARATE 25 MG TAB PO SCH (08:47)
[2023-06-08] MEDS ORDERED: FUROSEMIDE 20 MG/2 ML VIAL IVP SCH (09:00)
[2023-06-08] MEDS ORDERED: METOCLOPRAMIDE 10 MG/10 ML SYRP UDC GT SCH (11:30)
[2023-06-09] VITALS (27 sets, daily range): BP systolic 116–178; BP diastolic 66–97; PULSE 47–73; RESP 20–27; TEMP 96.9–99; O2SAT 90–100
[2023-06-09 05:38] LABS: EOSINOPHILS # (AUTO) 0.2 K/uL (0-0.4); EOSINOPHILS % (AUTO) 3.9 % (0.0-4.0); HEMATOCRIT 29.5 % (36-52); LYMPHOCYTES # (AUTO) 0.6 K/uL (2.0-11.5); MEAN CORPUSCULAR HEMOGLOBIN 30 pg (27-31); MEAN CORPUSCULAR HGB CONC 34 g/dL (33-37); MEAN CORPUSCULAR VOLUME 87.7 fL (80-94); MONOCYTES # (AUTO) 0.3 K/uL (0.8-1.0); MONOCYTES % (AUTO) 5.8 % (1.7-9.3); NEUTROPHILS # (AUTO) 3.3 K/uL (1.8-7.7); NEUTROPHILS % (AUTO) 76.3 % (42.2-75.2); PLATELET COUNT (AUTO) 269 K/uL (140-450); RED BLOOD CELL COUNT(AUTO) 3.36 MIL/uL (4.20-6.10); WHITE BLOOD COUNT (AUTO) 4.3 K/uL (4.8-10.8)
[2023-06-09 06:28] LABS: ANION GAP 12.7 (8-16); CALCIUM 8.9 mg/dL (8.5-10.1); CARBON DIOXIDE 25.5 mmol/L (21-32); CREATININE 0.5 mg/dL (0.6-1.3); POTASSIUM 3.2 mmol/L (3.5-5.1)
[2023-06-09] MEDS: HYDROcodone/APAP 5/325 MG 1 TAB TAB GT PRN (09:27)
[2023-06-09] MEDS: MORPHINE SULFATE 2 MG/ML SYR IVP PRN ×2 (11:14→17:44)
[2023-06-09] MEDS ORDERED: MSCON15 PO (17:01)
[2023-06-09] MEDS ORDERED: ACET-9527 PO (17:03)
== END 2023-06-09 17:45 | DRG 4 ==
LOC: MED 18:12 → MTU 22:23 → MIC 05-17 06:04
PROVIDERS: ADMIT Family Medicine; ATTEND Family Medicine
PROC: 5A1955Z Respiratory Ventilation, Greater than 96 Consecutive Hours (ICD-10-PCS; principal; 2023-05-17)
PROC: 0BH17EZ Insertion of Endotracheal Airway into Trachea, Via Natural or Artificial Opening (ICD-10-PCS; 2023-05-17)
PROC: 0B9F8ZX Drainage of Right Lower Lung Lobe, Via Natural or Artificial Opening Endoscopic, Diagnostic (ICD-10-PCS; 2023-05-17)
PROC: 0B9L8ZX Drainage of Left Lung, Via Natural or Artificial Opening Endoscopic, Diagnostic (ICD-10-PCS; 2023-05-17)
PROC: 0B9G8ZX Drainage of Left Upper Lung Lobe, Via Natural or Artificial Opening Endoscopic, Diagnostic (ICD-10-PCS; 2023-05-17)
PROC: 0B9H8ZX Drainage of Lung Lingula, Via Natural or Artificial Opening Endoscopic, Diagnostic (ICD-10-PCS; 2023-05-17)
PROC: 0B9J8ZZ Drainage of Left Lower Lung Lobe, Via Natural or Artificial Opening Endoscopic (ICD-10-PCS; 2023-05-19)
PROC: 0B9L8ZZ Drainage of Left Lung, Via Natural or Artificial Opening Endoscopic (ICD-10-PCS; 2023-05-19)
PROC: 0B9G8ZZ Drainage of Left Upper Lung Lobe, Via Natural or Artificial Opening Endoscopic (ICD-10-PCS; 2023-05-19)
PROC: 0B9H8ZZ Drainage of Lung Lingula, Via Natural or Artificial Opening Endoscopic (ICD-10-PCS; 2023-05-19)
PROC: 5A09357 Assistance with Respiratory Ventilation, Less than 24 Consecutive Hours, Continuous Positive Airway Pressure (ICD-10-PCS; 2023-05-23)
PROC: 5A0935A Assistance with Respiratory Ventilation, Less than 24 Consecutive Hours, High Flow/Velocity Cannula (ICD-10-PCS; 2023-05-26)
PROC: 5A1955Z Respiratory Ventilation, Greater than 96 Consecutive Hours (ICD-10-PCS; 2023-05-27)
PROC: 5A0935A Assistance with Respiratory Ventilation, Less than 24 Consecutive Hours, High Flow/Velocity Cannula (ICD-10-PCS; 2023-05-27)
PROC: 0B9J8ZX Drainage of Left Lower Lung Lobe, Via Natural or Artificial Opening Endoscopic, Diagnostic (ICD-10-PCS; 2023-05-27)
PROC: 0B9L8ZX Drainage of Left Lung, Via Natural or Artificial Opening Endoscopic, Diagnostic (ICD-10-PCS; 2023-05-27)
PROC: 0B9G8ZX Drainage of Left Upper Lung Lobe, Via Natural or Artificial Opening Endoscopic, Diagnostic (ICD-10-PCS; 2023-05-27)
PROC: 0B9H8ZX Drainage of Lung Lingula, Via Natural or Artificial Opening Endoscopic, Diagnostic (ICD-10-PCS; 2023-05-27)
PROC: 0BH17EZ Insertion of Endotracheal Airway into Trachea, Via Natural or Artificial Opening (ICD-10-PCS; 2023-05-28)
PROC: 0B110F4 Bypass Trachea to Cutaneous with Tracheostomy Device, Open Approach (ICD-10-PCS; 2023-06-05)
DX: J69.0 Pneumonitis due to inhalation of food and vomit (principal); J96.21 Acute and chronic respiratory failure with hypoxia; G93.41 Metabolic encephalopathy; I48.20 Chronic atrial fibrillation, unspecified; J98.11 Atelectasis; Z99.11 Dependence on respirator [ventilator] status; R65.10 Systemic inflammatory response syndrome (SIRS) of non-infectious origin without acute organ dysfunction; J15.1 Pneumonia due to Pseudomonas; E78.5 Hyperlipidemia, unspecified; E11.9 Type 2 diabetes mellitus without complications; Y95 Nosocomial condition; I48.0 Paroxysmal atrial fibrillation; R13.10 Dysphagia, unspecified; I11.0 Hypertensive heart disease with heart failure; I50.9 Heart failure, unspecified
CPT/HCPCS: 31500; 36415; 36600; 71045; 71250; 74018; 80048; 80053; 80076; 80202; 81001; 82803; 82948; 83605; 83735; 83880; 84100; 84484; 85025; 85610; 85730; 87040; 87070; 87081; 87086; 87186; 87205; 89220; 92526; 93005; 93971; 94002; 94003; 94640; 94667; 94761; 96365; 96375; 97110; 97112; 97163-GP; 97530; 99291; J0282; J0360; J0690; J0692; J1450; J1644; J1650; J1815; J1940; J2001; J2060; J2250; J2270; J2405; J2543; J2704; J2930; J3010; J3372; J3475; J3490; J7030; J7060; J7608; J7612; J7613; J8597; Q0092